=== PATIENT | female | born 1990 | race Two or more races ===

== ENCOUNTER → 2025-04-01 11:50 | Outpatient (REF) | payer OTHER, SELFPAY | LOC: RAD 11:50 | PROVIDERS: ATTENDING PHYSICIAN Family Medicine | DX: M25.551 Pain in right hip (principal); M25.552 Pain in left hip | CPT/HCPCS: 73523 ==

== ENCOUNTER → 2025-04-09 09:35 | Outpatient (REF) | payer OTHER, SELFPAY | LOC: WDC 09:35 | PROVIDERS: ATTENDING PHYSICIAN Family Medicine | DX: N64.4 Mastodynia (principal) | CPT/HCPCS: 76642; 77062; 77066 ==

== ENCOUNTER → 2025-04-09 10:38 | Outpatient (REF) | payer OTHER, SELFPAY | LOC: RAD 10:38 | PROVIDERS: ATTENDING PHYSICIAN Family Medicine | DX: M25.561 Pain in right knee (principal); M25.562 Pain in left knee | CPT/HCPCS: 73564 ==

== ENCOUNTER → 2025-09-17 09:57 | Outpatient (REF) | payer OTHER, SELFPAY | LOC: RAD 09:57 | PROVIDERS: ATTENDING PHYSICIAN Family Medicine | DX: M76.60 Achilles tendinitis, unspecified leg (principal) | CPT/HCPCS: 76882 ==